=== PATIENT | female | born 1970 | race Caucasian/White ===

== ENCOUNTER → 2023-07-11 12:29 | Outpatient (REF) | payer BC, SELFPAY | LOC: WDC 12:29 | PROVIDERS: ATTENDING PHYSICIAN Obstetrics & Gynecology Gynecology; FAMILY PHYSICIAN Family Medicine | DX: Z12.31 Encounter for screening mammogram for malignant neoplasm of breast (principal) | CPT/HCPCS: 77063; 77067 ==

== ENCOUNTER → 2023-07-15 11:19 | Outpatient (REF) | payer BC, SELFPAY | LOC: HWRAD 11:19 | PROVIDERS: ATTENDING PHYSICIAN Physician Assistant; FAMILY PHYSICIAN Family Medicine | DX: S90.121A Contusion of right lesser toe(s) without damage to nail, initial encounter (principal) | CPT/HCPCS: 73660 ==

== ENCOUNTER → 2025-02-01 14:38 | Outpatient (REF) | payer BC, SELFPAY | LOC: WDC 14:38 | PROVIDERS: ATTENDING PHYSICIAN Obstetrics & Gynecology Gynecology; FAMILY PHYSICIAN Family Medicine | DX: Z12.31 Encounter for screening mammogram for malignant neoplasm of breast (principal) | CPT/HCPCS: 77063; 77067 ==